=== PATIENT | male | born 1985 | race Caucasian/White ===

== ENCOUNTER 2019-01-21 11:22 | Emergency (ER) | payer SELFPAY ==
[2019-01-21] MEDS ORDERED: NA CHLORIDE 0.9% 1,000 ML ONE ×2 (11:53→14:17)
[2019-01-21 12:02] LABS: Absolute Lymphocytes (CBC) 1.7 K/uL (0.7-4.9); Absolute Monocytes 0.7 K/uL (0.1-1.3); Absolute Neutrophil 2.4 K/uL (1.8-8.0); Basophils % 0.5 % (0-1.3); Eosinophils % 0.9 % (0-4.4); Hematocrit 46.4 % (39.6-49.0); Lymphocytes % 34.8 % (15.3-44.8); MPV 8.6 fL (7.6-11.3); Monocytes % 13.5 % (3.3-12.3); RBC Red Blood Cell Count 5.22 M/uL (4.33-5.43)
--- NOTE | 2019-01-21 12:13 | RAD REPORT ---
EXAM DESCRIPTION: CT - Head Brain Wo Cont - 01/21/2019 11:50 am CLINICAL HISTORY: Confusion/alteration of awareness COMPARISON: None. TECHNIQUE: Computed axial tomography of the head was obtained. IV contrast was not requested. All CT scans are performed using dose optimization technique as appropriate and may include automated exposure control or mA/KV adjustment according to patient size. FINDINGS: An intracranial bleed is not seen . The ventricles are normal in caliber. No extra-axial fluid collection is noted. Fluid within the sinuses/ mastoids is not seen. IMPRESSION: No acute intracranial abnormality is seen. If patient's symptoms persist MRI of the bra in would be recommended.
[2019-01-21 12:17] LABS: Protime INR 1.05
[2019-01-21 12:23] LABS: ALT/SGPT 45 U/L (12-78); AST/SGOT 20 U/L (15-37); Albumin 4.3 g/dL (3.4-5.0); Alkaline Phosphatase 72 U/L (45-117); BUN Blood Urea Nitrogen 17 mg/dL (7-18); Bicarbonate 26 mmol/L (21-32); Bilirubin Direct 0.3 mg/dL (0-0.2); Bilirubin Total 1.2 mg/dL (0.2-1.0); Glucose Level 79 mg/dL (74-106); Potassium 3.4 mmol/L (3.5-5.1); Protein, Total 7.3 g/dL (6.4-8.2); Sodium Level 139 mmol/L (136-145)
[2019-01-21] MEDS ORDERED: NALOXONE HCL 2 MG/2 ML VIAL ONE (12:55)
[2019-01-21 13:13] LABS: Urine Blood NEGATIVE (NEG); Urine Glucose NEGATIVE (NEG); Urine Protein 1+ (NEG); Urine Specific Gravity >1.030 (1.005-1.030)
[2019-01-21 13:18] LABS: Barbiturates NEGATIVE (NEGATIVE); Benzodiazepines POSITIVE (NEGATIVE); Cocaine POSITIVE (NEGATIVE); METHAMPHETAM POSITIVE (NEGATIVE); Methadone NEGATIVE (NEGATIVE); Opiates NEGATIVE (NEGATIVE); Phencyclidine POSITIVE (NEGATIVE); THC Cannibis POSITIVE (NEGATIVE)
[2019-01-21] MEDS ORDERED: POTASSIUM 25 MEQ EFFERV TAB ONE (16:50)
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
--- NOTE | 2019-01-21 17:10 | EDPHYS ---
Physician Documentation [facility] Name: Sai Ovalle Age: 33 yrs Sex: Male : 1985 Arrival Date: 01/21/2019 Time: 11:28 Bed 6 Private MD: ED Physician Jas Yan HPI: 01/21 11:30 This 33 yrs old Male presents to ER via EMS with complaints of Unresponsive. cp 11:30 The patient's problem is reported as altered mental status, confused, decreased cp responsiveness. Onset: The symptoms/episode began/occurred this morning. Duration: The episode is continuous. 11:30 Patient's baseline: Neuro: alert and fully oriented, Motor: no deficits, Ambulation: cp walks without assistance, Speech: normal. 11:30 Associated signs and symptoms: Pertinent negatives: fever. Patient brought to ED via EMS after responding to patient becoming altered and unresponsive while at work this morning. Patient aroused with sternal rub and admits to use of methamphetamine. Employer reports patient was at work this morning and seemed drowsy, so he was sent for drug testing when he became unresponsive. EMS reports giving patient total 4 mg Narcan while enroute. Historical: - Allergies: 11:33 No Known Allergies; sv - PMHx: 11:33 None; sv - PSHx: 11:33 None; sv - Immunization history:: Adult Immunizations unknown. - Social history:: Smoking status: unknown. - Ebola Screening: : Unable to complete screening because patient does not understand, patient is disoriented, . ROS: 11:35 Constitutional: Negative for fever. cp 11:35 Neuro: Positive for altered mental status. cp 11:35 Unable to obtain ROS due to altered mental status. Exam: 11:42 Head/Face: Normocephalic, atraumatic. cp 11:42 Constitutional: The patient appears in no acute distress, non-diaphoretic, non-toxic, well developed, well nourished. 11:42 Eyes: Periorbital structures: appear normal, Pupils: pinpoint, bilaterally, Conjunctiva: normal, no exudate, no injection, Lids and lashes: appear normal, bilaterally. 11:42 ENT: External ear(s): are unremarkable, Ear canal(s): are normal, clear, TM's: dullness, bilaterally, Nose: is normal, Mouth: Lips: moist, Oral mucosa: moist, Posterior pharynx: Airway: no evidence of obstruction, patent. 11:42 Neck: C-spine: vertebral tenderness, is not appreciated, crepitus, is not appreciated. 11:42 Chest/axilla: Inspection: normal, Palpation: is normal, no crepitus, no tenderness. 11:42 Cardiovascular: Rate: normal, Rhythm: regular, Pulses: Pulses are 2+ in right radial cp artery and left radial artery. Heart sounds: murmur, not appreciated, rub, not appreciated, gallop, not appreciated, Edema: is not appreciated. 11:42 Respiratory: the patient does not display signs of respiratory distress, Respirations: normal, no use of accessory muscles, no retractions, no splinting, no tachypnea, labored breathing, is not present, Breath sounds: are clear throughout, no decreased breath sounds, no stridor, no wheezing. 11:42 Abdomen/GI: Inspection: abdomen appears normal, Bowel sounds: active, all quadrants, Palpation: abdomen is soft and non-tender, in all quadrants. 11:42 Musculoskeletal/extremity: Exam is negative for decreased range of motion, deformity, injury. 11:42 Skin: cellulitis, is not appreciated, injury, is not appreciated. 11:42 Neuro: Mentation: somnolent, responsive to sternal rub, Motor: moves all fours. 11:45 ECG was reviewed by the Attending Physician. cp 12:25 Radiologist reports: no acute findings cp Vital Signs: 11:34 BP 121 / 81; Pulse 87; Resp 16; Temp 98; Pulse Ox 98% on R/A; Pain 0/10; iw 12:39 BP 116 / 74; Pulse 90; Resp 16; Pulse Ox 100% on R/A; Weight 74.84 kg; Height 5 ft. 7 iw in. (170.18 cm); Pain 0/10; 13:24 BP 102 / 74; Pulse 80; Resp 14 S; Pulse Ox 100% on R/A; Pain 0/10; iw 14:06 BP 115 / 73; Pulse 76; Resp 15 S; Pulse Ox 100% on R/A; Pain 0/10; iw 14:41 BP 106 / 75; Pulse 65; Resp 15 S; Pulse Ox 100% on R/A; Pain 0/10; iw 15:13 BP 109 / 66; Pulse 77; Resp 14 S; Pulse Ox 100% on R/A; Pain 0/10; iw 16:08 BP 110 / 69; Pulse 77; Resp 15 S; Pulse Ox 99% on R/A; Pain 0/10; iw 16:18 BP 110 / 69; Pulse 78; Resp 16 S; Pulse Ox 100% on R/A; iw 12:39 Body Mass Index 25.84 (74.84 kg, 170.18 cm) iw MDM: 11:30 Patient medically screened. cp 11:45 Differential diagnosis: metabolic disorder, drug effects, arrythmia. cp 17:05 Data reviewed: vital signs, nurses notes, lab test result(s), EKG, radiologic studies, cp CT scan, I have discussed the patient's presentation/case with the attending Emergency Department Physician; and as a result, I will discharge patient. 17:05 Test interpretation: by ED physician or midlevel provider: ECG. Counseling: I had a cp detailed discussion with the patient and/or guardian regarding: the historical points, exam findings, and any diagnostic results supporting the discharge/admit diagnosis, lab results, radiology results, to return to the emergency department if symptoms worsen or persist or if there are any questions or concerns that arise at home. Response to treatment: the patient's symptoms have markedly improved after treatment, VSS. Labs reviewed that show patient positive for multiple illegal drugs and prescription drugs. Patient now alert and ambulating without assistance in ED, and as a result, I will discharge patient. 01/21 11:29 Order name: Acetaminophen; Complete Time: 13:04 cp 01/21 11:29 Order name: Basic Metabolic Panel; Complete Time: 13:04 cp 01/21 13:04 Interpretation: Normal except: K 3.4; GFR 84. cp 01/21 11:29 Order name: CBC with Diff; Complete Time: 12:20 cp 01/21 12:21 Interpretation: Normal except: MN% 13.5. cp 01/21 11:29 Order name: ETOH Level; Complete Time: 12:20 cp 01/21 11:29 Order name: Hepatic Function; Complete Time: 13:04 cp 01/21 11:29 Order name: PT-INR; Complete Time: 13:04 cp 01/21 11:29 Order name: Ptt, Activated; Complete Time: 13:04 cp 01/21 11:29 Order name: Salicylate; Complete Time: 13:04 cp 01/21 11:29 Order name: Urine Drug Screen; Complete Time: 13:31 cp 01/21 13:32 Interpretation: Normal except: PCP POSITIVE; BZO POSITIVE; LEIDA POSITIVE; cp METHAMPHETAMINE POSITIVE; THC POSITIVE. 01/21 11:29 Order name: CT Head Brain wo Cont; Complete Time: 12:20 cp 01/21 12:59 Order name: Urine Dipstick--Ancillary (enter results); Complete Time: 13:18 em1 01/21 11:29 Order name: EKG; Complete Time: 11:31 cp 01/21 11:29 Order name: EKG - Nurse/Tech; Complete Time: 11:58 cp 01/21 11:29 Order name: IV Saline Lock; Complete Time: 11:58 cp 01/21 11:29 Order name: Labs collected and sent; Complete Time: 11:58 cp 01/21 11:29 Order name: Urine Dipstick-Ancillary (obtain specimen); Complete Time: 12:58 cp 01/21 12:05 Order name: Cath; Complete Time: 12:58 cp EC:45 Rate is 85 beats/min. Rhythm is regular. NE interval is normal. QRS interval is normal. cp QT interval is normal. Interpreted by me. Reviewed by me. Administered Medications: 11:44 Drug: NS 0.9% 1000 ml Route: IV; Rate: 1 bolus; Site: right forearm; iw 12:50 Drug: NARcan 1 mg Route: IVP; Site: right forearm; iw 13:20 Follow up: Response: No adverse reaction; No change in condition iw 13:20 Drug: NS 0.9% 1000 ml Route: IV; Rate: 1 bolus; Site: right forearm; iw 14:05 Drug: NS 0.9% 1000 ml Route: IV; Rate: 125 ml/hr; Site: right forearm; iw 16:41 Drug: Potassium Effervescent Tablet 25 mEq Route: PO; iw 17:20 Follow up: Response: No adverse reaction iw Disposition: 18:00 Chart complete. cp 19:05 Co-signature as Attending Physician, Jas Yan MD. rn Disposition: 01/21/19 17:09 Discharged to Home. Impression: Adverse effect of cocaine, Adverse effect of benzodiazepines, Adverse effect of amphetamines. - Condition is Stable. - Discharge Instructions: Stimulant Use Disorder-Cocaine, Benzodiazepine Overdose, Stimulant Use Disorder-Methamphetamines, Drug Overdose. - Medication Reconciliation Form, Thank You Letter, Antibiotic Education, Prescription Opioid Use form. - Follow up: Private Physician; When: 1 - 2 days; Reason: Recheck today's complaints. - Problem is new. - Symptoms have improved. Signatures: Dispatcher [employer] Aissatou Thompson RN RN sv Williams, Irene, RN RN iw Nieto, Roman, MD MD rn Page, Corey, PA PA cp Botello, Elizabeth eb Corrections: (The following items were deleted from the chart) 17:35 17:09 01/21/2019 17:09 Discharged to Home. Impression: Adverse effect of cocaine; eb Adverse effect of benzodiazepines; Adverse effect of amphetamines. Condition is Stable. Forms are Medication Reconciliation Form, Thank You Letter, Antibiotic Education, Prescription Opioid Use. Follow up: Private Physician; When: 1 - 2 days; Reason: Recheck today's complaints. Problem is new. Symptoms have improved. cp
--- NOTE | 2019-01-21 17:15 | EKG ---
Test Date: 2019-01-21 Test Time: 11:37:56 Nurse Assessor: ALICIA MEASUREMENT RESULTS: Intervals: Rate: 85 NM: 152 QRSD: 88 QT: 394 QTc: 468 [place]: P: 51 NM: 152 QRS: 43 T: 38 INTERPRETIVE STATEMENTS: Normal sinus rhythm Normal ECG No previous ECG available for comparison Electronically Signed On 01-21-19 17:13:30 CDT by Zechariah Hope
== END 2019-01-21 17:35 | disposition home or self-care (01) ==
LOC: ER 11:22
DX: R41.82 Altered mental status, unspecified (principal); T40.5X5A Adverse effect of cocaine, initial encounter; T42.4X5A Adverse effect of benzodiazepines, initial encounter; T43.625A Adverse effect of amphetamines, initial encounter
CPT/HCPCS: 36415; 70450; 80048; 80076; 80307; 80320; 80329; 81003; 85025; 85610; 85730; 93005; 96374; 99291; 99292; J2310; J7030